=== PATIENT | male | born 1955 | race Caucasian/White ===

== ENCOUNTER 2017-04-19 07:56 | Day surgery (SDC) | payer SELFPAY ==
[~2017-04-19 07:56] MED LIST: RINGER'S SOLUTION,LACTATED 1,000 ML IV PRN
[2017-04-19] MEDS ORDERED: RINGER'S SOLUTION,LACTATED 1,000 ML IV ONE (08:30)
[2017-04-19] MEDS ORDERED: RINGER'S SOLUTION,LACTATED 1,000 ML IV PRN (09:19)
[2017-04-19 10:28] VITALS: BP 118/68
--- NOTE | 2017-04-19 17:12 | OR ---
Operative Report - Dictated Report Narrative: OPERATIVE REPORT DATE OF OPERATION: 04/19/2017 PREOPERATIVE DIAGNOSIS: No prior dedicated colon studies POSTOPERATIVE DIAGNOSIS: Significant sigmoid diverticulosis OPERATION: Colonoscopy SURGEON: Hayden Biswas MD ANESTHESIA: YENNIFER Michaels CRNA INDICATIONS FOR PROCEDURE: The patient is a 61-year-old male referred by [facility] after recent visit for abdominal pain. He had a kidney stone at that time, and on CT scan there was mention of possible ileitis/colitis, however after passing the stone he has had no further abdominal pain or bowel symptoms. FINDINGS: Significant sigmoid diverticulosis otherwise normal colonoscopy to the cecum (specifically no inflammatory changes) NARRATIVE OF PROCEDURE: The patient was identified in the holding area, and prior to the administration of anesthetic, a multidisciplinary timeout was observed. With the patient in the left lateral position and after the administration of intravenous sedation, the perineum was inspected. There was no evidence of pilonidal disease or skin breakdown. The external appearance of the anus was normal. Sphincter tone was good. The flexible fiberoptic colonoscope was inserted into the rectum which was insufflated with air. The rectal mucosa and submucosal vascular pattern appeared normal, the prep was seen to be complete. The scope was advanced through the sigmoid colon, which contained numerous large non-impacted noninflamed diverticular openings. The scope was advanced up the descending colon, and around the splenic flexure where the triangular haustral architecture of the transverse colon was seen. The scope was advanced across the transverse colon, around the hepatic flexure to the cecum, where the confluence of tenia and the ileocecal valve were identified. The mucosa at this level appeared normal. The scope was then slowly withdrawn in a circular fashion so that all aspects of colonic mucosa were inspected. The colon was normal in course and caliber. The haustral architecture appeared well preserved throughout with no evidence of external compression. The mucosa and submucosal vascular pattern appeared normal, specifically there was no gross evidence to suggest colitis or inflammatory bowel disease and no AV malformations were seen. The diverticulosis was moderate in degree and confined primarily to the sigmoid colon. No polyps were encountered. The scope was gradually withdrawn to the level of the rectum. As much insufflated air as possible was removed. The scope was withdrawn from the patient and the procedure terminated. The patient tolerated the anesthetic and procedure well without complication and was transferred back to the ambulatory surgery area awake and in stable condition. The patient remained stable throughout a period of postoperative observation. He denied abdominal discomfort, was able to tolerate by mouth intake, and was up without assistance. I shared the operative findings with the patient and he was given copies of the photographs which appear in the medical record. He was discharged home with instructions not to engage in hazardous activity today, but may resume normal activity tomorrow, and advance diet as tolerated. He is to continue those medications as listed in the history and physical exam. A pamphlet on diverticular disease was reviewed with him and his and was given to him for reference. A trial of Benefiber to titrate as needed was suggested. RECOMMENDATION: Colon surveillance in 10 years depending upon findings or symptoms Reviewed and electronically signed
== END 2017-04-19 07:57 | disposition home or self-care (01) ==
LOC: AMB 07:56
PROVIDERS: ATTEND Surgery
PROC: 0DJD8ZZ Inspection of Lower Intestinal Tract, Via Natural or Artificial Opening Endoscopic (ICD-10-PCS; principal; 2017-04-19 09:00)
DX: Z12.11 Encounter for screening for malignant neoplasm of colon (principal); K57.30 Diverticulosis of large intestine without perforation or abscess without bleeding; Z68.28 Body mass index [BMI] 28.0-28.9, adult